=== PATIENT | female | born 1995 | race Hispanic/Latino ===

== ENCOUNTER 2025-03-30 13:33 | Emergency (ER) | payer OTHER ==
[~2025-03-30] VITALS: Ht 157.5 cm; Wt 98.0 kg
--- NOTE | 2025-03-30 14:00 | ERN ---
ED Note History of Present Illness Stated Complaint: VAGINAL BLEEDING Chief Complaint: Vaginal Problems/Bleeding Time Seen by MD: 13:35 Dictation: PATIENT IS A 29-YEAR-OLD FEMALE COMING IN TODAY WITH COMPLAINTS OF SEVERE PELVIC PAIN WITH VAGINAL BLEEDING ONSET YESTERDAY. SHE STATES SHE HAS IRREGULAR IN HIS NOT HAD A PERIOD IN SIX MONTHS. HER PRIMARY CARE DOCTORS IN [facility], HAS A NEVER REFERRED HER TO AN JOB DEVELOPER DOCTOR DUE TO HER REGULAR MENSES. SHE STATES SHE IS SEXUALLY ACTIVE WITHOUT PROTECTION NAUSEA VOMITING NO FEVER NO CHILLS Allergies: Coded Allergies: No Known Allergies (Unverified Allergy, Unknown, 03/30/25) Past Medical History Past Medical History: Diabetes-Type II, High Cholesterol, Hypertension Surgical History: Other RN Note Reviewed/Agreed w/PFSH: Yes Review of System Dictation CONSTITUTIONAL: NEGATIVE EXCEPT FOR HPI HEAD/FACE: NEGATIVE EXCEPT FOR HPI EENT: NEGATIVE EXCEPT FOR HPI RESPIRATORY: NEGATIVE EXCEPT FOR HPI GASTROINTESTINAL/ABDOMINAL: NEGATIVE EXCEPT FOR HPI GENITOURINARY: NEGATIVE EXCEPT FOR HPI SEVERE PELVIC PAIN WITH VAGINAL BLEEDING ONSET YESTERDAY MUSCULOSKELETAL: NEGATIVE EXCEPT FOR HPI INTEGUMENTARY: NEGATIVE EXCEPT FOR HPI NEUROLOGICAL/PSYCH: NEGATIVE EXCEPT FOR HPI HEMATOLOGIC/LYMPHATIC: NEGATIVE EXCEPT FOR HPI ALL SYSTEMS NEGATIVE, EXCEPT NOTED ABOVE. 13 POINT REVIEW OF SYSTEMS ASSESSED AND ALL NEGATIVE EXCEPT FOR ABOVE. Initial Vital Sign VS Vital Signs Date Time Temp Pulse Resp B/P (MAP) Pulse Ox O2 Delivery O2 Flow Rate FiO2 03/30/25 13:35 98.6 73 20 134/73 98 Room Air 03/30/25 13:45 0 21 Physical Exam Dictation VITAL SIGNS REVIEWED GENERAL APPEARANCE: ALERT, ORIENTED X 3, MODERATE ACUTE DISTRESS, WELL DEVELOPED, NOURISHED. MORBID OBESITY HEAD AND FACE: NON-TRAUMATIC. EYES: PERRL, PINK CONJUNCTIVAS, EYELID NO TRAUMA, ANTERIOR CHAMBER WITH ARCUS SENILIS. EARS: PINNAS INTACT AND NO SIGNS OF TRAUMA OR ERYTHEMA EAR CANALS CLEAR AND NO DISCHARGE TM NO ERYTHEMA NOSE: NO DISCHARGE, NO BLEEDING. OROPHARYNX: MOUTH NORMAL, TONGUE PINK, PHARYNX CLEAR,NO ERYTHEMA, TONSILS NO EXUDATES, NO ABSCESSES NOTED, MUCOUS MEMBRANE MOIST NECK: SUPPLE, NON-TENDER, NO THYROMEGALY, NO MASSES, NO JVD, NO BRUITS BREAST:DEFERRED CHEST:NO TENDERNESS, NO CREPITUS, NO PARADOXICAL MOVEMENT, NO RETRACTIONS LUNGS:CLEAR, WELL-VENTILATED, SYMMETRIC, NO RALES, NO WHEEZING, NO RHONCHI, NO STRIDOR, GOOD BREATH SOUNDS BILATERALLY HEART: REGULAR RATE, REGULAR RHYTHM, NO MURMUR, NO GALLOPS VASCULAR: NO PERIPHERAL EDEMA, ABDOMEN: SOFT, POSITIVE BOWEL SOUNDS, NONDISTENDED, NO GUARDING, NONTENDER, NO REBOUND, NO MASSES NO HEPATOMEGALY, NO SPLENOMEGALY, NO TERESA'S SIGN, NO HERNIAS. RECTAL: DEFERRED GENITAL: DEFERRED NEUROLOGICAL: NORMAL SPEECH, MOTOR FUNCTION INTACT, SENSORY FUNCTION INTACT MUSCULOSKELETAL: NECK NONTENDER, FULL RANGE OF MOTION, BACK NONTENDER, FULL RANGE OF MOTION, EXTREMITIES: NONTENDER, FULL RANGE OF MOTION SKIN: COLOR PINK, DRY, NO TURGOR, NO RASH, NO LACERATIONS, NO ABRASIONS, NO CONTUSIONS. LYMPHATIC: DEFERRED Results (Laboratory/Radiology) Laboratory/Radiology Laboratory Tests Test 03/30/25 14:07 White Blood Count 13.1 K/uL (4.8-10.8) H Red Blood Count 4.42 MIL/uL (4.00-5.50) Hemoglobin 12.3 g/dL (12.0-16.0) Hematocrit 37.8 % (36-48) Mean Corpuscular Volume 85.5 fL (79-99) Mean Corpuscular Hemoglobin 27.8 pg (27.0-33.0) Mean Corpuscular Hemoglobin Concent 32.5 g/dL (32.0-36.0) Red Cell Distribution Width 14.7 % (11.0-15.5) Platelet Count 254 K/uL (130-400) Mean Platelet Volume 12.7 fL (7.5-10.5) H Immature Granulocyte % (Auto) 0.5 % (0-1) Neutrophils (%) (Auto) 62.9 % (40.0-77.0) Lymphocytes (%) (Auto) 31.1 % (21.0-51.0) Monocytes (%) (Auto) 3.9 % (3.0-13.0) Eosinophils (%) (Auto) 1.1 % (0.0-8.0) Basophils (%) (Auto) 0.5 % (0.0-5.0) Neutrophils # (Auto) 8.3 K/uL (1.8-7.7) H Lymphocytes # (Auto) 4.1 K/uL (1.0-4.8) Monocytes # (Auto) 0.5 K/uL (0.1-1.0) Eosinophils # (Auto) 0.15 K/uL (0.00-0.70) Basophils # (Auto) 0.07 K/uL (0.00-0.20) Absolute Immature Granulocyte (auto 0.06 K/uL (0-1) Nucleated Red Blood Cells 0.0 % (0.0-0.19) Sodium Level 136 mmol/L (136-145) Potassium Level 3.9 mmol/L (3.5-5.1) Chloride Level 100 mmol/L (101-111) L Carbon Dioxide Level 24 mmol/L (21-32) Blood Urea Nitrogen 14 mg/dL (7-18) Creatinine 0.7 mg/dL (0.5-1.0) Glomerular Filtration Rate Calc 119 mL/min (>90) Random Glucose 188 mg/dL (70-105) H Total Calcium 8.7 mg/dL (8.5-10.1) Human Chorionic Gonadotropin, Quant 4477 mIU/mL (0-5) H Labs Reviewed?: Yes ED Course ED Course Orders Procedure Category Date Status Time Cbc With Differential LAB 03/30/25 Complete 13:56 Hcg,Quantitative LAB 03/30/25 Complete 13:56 0.9%Nacl 1000ml (Ns PHA 03/30/25 Complete 1000ml) 14:00 Type And Screen BBK 03/30/25 Complete 13:56 Basic Metabolic Panel LAB 03/30/25 Complete 13:56 Morphine 2mg Syg PHA 03/30/25 Complete (Morphine 2mg Syg) 14:00 Ondansetron 4mg Inj PHA 03/30/25 Complete (Zofran 4mg Inj) 14:00 Us Ob <14 Weeks US 03/30/25 Taken 13:56 Acetaminophen With PHA 03/30/25 Complete Codeine (Tylenol-Code 16:00 Current Medications Medications (Trade) Dose Ordered Sig/Andra Route PRN Reason Start Time Stop Time Status Last Admin Dose Admin Acetaminophen/ Codeine Phosphate (TYLenol-coDEINE TAB) 2 tab ONCE ONCE PO 03/30/25 16:00 03/30/25 16:01 DC Morphine Sulfate (morPHINE 2MG SYG) 2 mg ONCE ONCE IVP 03/30/25 14:00 03/30/25 14:01 DC 03/30/25 14:55 Ondansetron HCl (zoFRAN 4MG INJ) 4 mg ONCE ONCE IVP 03/30/25 14:00 03/30/25 14:01 DC 03/30/25 14:55 Sodium Chloride 1,000 ml @ 0 mls/hr ONCE ONCE IV 03/30/25 14:00 03/30/25 14:01 DC Vital Signs Date Time Temp Pulse Resp B/P (MAP) Pulse Ox O2 Delivery O2 Flow Rate FiO2 03/30/25 13:45 98.6 73 20 134/73 98 Room Air* 0 21 03/30/25 13:35 98.6 73 20 134/73 98 Room Air Medical Decision Making MDM MDM: Differential diagnosis: Ectopic /miscarriage/incomplete miscarriage/bleeding in early /UTI/electrolyte imbalance/dehydration/anemia Rationale: Tests considered and ordered secondary to shared decision making include: Labs/radiology Previous outside records reviewed: Old ER visits. Risk of complication and/or morbidity or mortality of patient management: None Medications-Per medication reconciliation Need for hospitalization: Patient does not meet criteria for hospitalization. No Need for emergency major/minor surgery: No There are no social concerns with this patient. Prescription drug management Tylenol with codeine Prescriptions will include symptomatic care Patient's prior external medical records from other ER visits were reviewed by me as indicated. Prior testing and results from previous visits were reviewed. Prior tests were taken into account with medical decision making and resource u tilization, independent historian/historians were used to obtain complete medical history. I independently interpreted the test that were performed, results were reviewed by me and considered findings on radiology if ordered. Medical management and examination interpretation discussions were had by me with other qualified healthcare professionals as indicated for the patient's ca re. DX & DISP Disposition: Discharge Decision to Admit Time: 16:06 Departure Impression: Primary Impression: demise, less than 22 weeks Additional Impressions: Dehydration, Vaginal bleeding, Uncontrolled diabetes mellitus Condition: Stable Scripts Acetaminophen with Codeine (Acetaminophen-Cod #3 Tablet) 300 Mg-30 Mg Tablet 1 TAB PO Q4H PRN for MODERATE TO SEVERE, #12 TAB 0 Refills Prov: MICHAELA MORRISSEY LEAF STAMPER 03/30/25 Additional Instructions: Follow-up with primary care provider in 1 to 2 days. Take medications as directed here in the emergency room. Okay to continue home medications unless otherwise discussed during your visit in the emergency room today. Return to your nearest emergency room if symptoms worsen or if there is no improvement. Call 911 if you need immediate assistance. Take Tylenol or Motrin [id number] as needed and if no contraindications are present. Increase oral hydration. A wound culture or urine culture was ordered here in the emergency room department please follow-up with primary care provider and advise them to get repeat ports from our facility. If you had any Newton wrap/splints that were applied here, please do not remove them until you see your primary care or specialty. Take Tylenol with codeine as needed for severe pain. Follow up with the your primary care doctor or see your english faculty member doctor in [facility]. Time of Disposition: 16:07 I have reviewed the case, and I agree with, Diagnosis and Plan MICHAELA MORRISSEY Mar 30, 2025 14:00
[2025-03-30 14:33] LABS: IMMATURE GRANULOCYTE ABSOLUTE 0.06 K/uL (0-1); NUCLEATED RED BLOOD CELLS 0.0 % (0.0-0.19); PLATELET COUNT (AUTO) 254 K/uL (130-400); RED BLOOD CELL COUNT(AUTO) 4.42 MIL/uL (4.00-5.50); RED CELL DISTRIBUTION WIDTH 14.7 % (11.0-15.5); WHITE BLOOD COUNT (AUTO) 13.1 K/uL (4.8-10.8)
[2025-03-30 14:40] LABS: CREATININE 0.7 mg/dL (0.5-1.0); GLOMERULAR FILTR. RATE CALC 119.0 mL/min (>90); GLUCOSE,RANDOM 188.0 mg/dL (70-105); SODIUM SERUM 136.0 mmol/L (136-145); UREA NITROGEN, BLOOD 14.0 mg/dL (7-18)
--- NOTE | 2025-03-30 15:11 | NUR ---
PT FEELS FULL. RADIOLOGY NOTIFIED-SPOKE W/PORTIA
--- NOTE | 2025-03-30 15:15 | NUR ---
[employer] TECH JUST ARRIVED AT BEDSIDE.
[2025-03-30] MEDS ORDERED: ACET-2079 PO (16:09)
[2025-03-30] MEDS: 0.9%NACL 1000ML 1,000 ML IV ONE (16:42)
[2025-03-30 16:46] VITALS: BP 112/65; PULSE 82; RESP 13; TEMP 98.6; O2SAT 100
--- NOTE | 2025-03-30 16:56 | HMCIMG ---
EXAM: US Obstetrical, Complete <14 weeks CLINICAL HISTORY: VAGINAL BLEEDING. IRREGULAR MENSES VAGINAL BLEEDING SINCE YESTERDAY TECHNIQUE: Transabdominal imaging of the maternal pelvis and a <14 week gestation with image documentation. COMPARISON: None provided. FINDINGS: GESTATION: Bob gestation is seen. There is no cardiac activity. The crown-rump length is 1.1 cm. This is consistent with a 7-week 1 day gestation. UTERUS: Unremarkable. No myometrial mass. CERVIX: Closed. Unremarkable. OVARIES: Left ovary was not seen. The right is normal FREE FLUID: No free fluid. IMPRESSION: Bob 7 weeks 1 day of age. No cardiac activity consistent with demise. /Anna Marie
== END 2025-03-30 16:56 | disposition home or self-care (01) ==
LOC: EDH 13:33
DX: O02.1 Missed abortion (principal); O99.284 Endocrine, nutritional and metabolic diseases complicating childbirth; E86.0 Dehydration; O24.111 Pre-existing type 2 diabetes mellitus, in pregnancy, first trimester; O10.911 Unspecified pre-existing hypertension complicating pregnancy, first trimester; E11.65 Type 2 diabetes mellitus with hyperglycemia; E78.00 Pure hypercholesterolemia, unspecified; Z3A.01 Less than 8 weeks gestation of pregnancy
CPT/HCPCS: 99285; 96374; 76801; 96361; 96375; 80048; 84702; 85025; 86850; 86900; 86901; 36415; J2270; J7030; J2405